=== PATIENT | female | born 1965 | race African-American/Black ===

== ENCOUNTER → 2017-10-09 | Outpatient (CLI) | payer OTHER ==
--- NOTE | 2017-10-09 16:10 | RADIOLOGY REPORT (SQ) ---
EXAM DESCRIPTION: U/S [id number] TRNABD 1GES W/ODOP COMPLETED DATE/TIME: 10/09/2017 4:01 pm REASON FOR STUDY: O36.80X0 W INCONCLUSIVE VIABILITY, UNSP O36.80X0 W INCO NCLUSIVE VIABILITY, UNSP COMPARISON: None. TECHNIQUE: Transvaginal static and realtime grayscale images acquired of the pelvis. Additional mariann cted spectral and color Doppler images recorded. All images stored on PACs. bHCG: Not available LIMITATIONS: None. FINDINGS: UTERUS: Uterine fibroid is identified measuring 4.7 x 4.3 x 4.1 cm GESTATIONAL SAC: Not visualized YOLK SAC: Not visualize POLE: Not visualized RIGHT ADNEXA: Right ovary not visualized. No adnexal free fluid. No adnexal masses. LEFT ADNEXA: Left ovary not visualized. No adnexal free fluid. No adnexal masses. FREE FLUID: None. OTHER: There is some thickening of the endometrium measuring 29 mm. IMPRESSION: No IUP is identified. There is some thickening of the endometrium. Uterine fibroid is identified as noted above. Other findings as noted above. Trimester of : First - 0 to 13 weeks. TECHNICAL DOCUMENTATION: JOB ID: [id number] [employer]- All Rights Reserved Reading location - IP/workstation name: [email or web address]
== END ==
LOC: RAD 16:53
PROVIDERS: ATTEND Student in an Organized Health Care Education/Training Program
DX: O36.80X0 Pregnancy with inconclusive fetal viability, not applicable or unspecified (principal); D25.9 Leiomyoma of uterus, unspecified
CPT/HCPCS: 76801

== ENCOUNTER → 2017-10-09 | Outpatient (CLI) | payer OTHER | LOC: OD 12:16 | PROVIDERS: ATTEND Student in an Organized Health Care Education/Training Program | DX: O36.80X0 Pregnancy with inconclusive fetal viability, not applicable or unspecified (principal); D25.9 Leiomyoma of uterus, unspecified | CPT/HCPCS: 36415; 84702 ==

== ENCOUNTER 2017-10-10 07:00 | Day surgery (SDC) | payer OTHER ==
[2017-10-10] MEDS ORDERED: BUPIVACAINE HCL 0.25 % INJ/PF (2.5 MG/1 ML) 30 ML VIAL ONE (07:49)
[2017-10-10 07:52] LABS: HEMATOCRIT 37.3 % (36.0-47.0); HEMOGLOBIN 12.4 g/dL (12.0-15.5); MEAN CORPUSCULAR HEMOGLOBIN 29.8 pg (27.0-33.4); MEAN CORPUSCULAR HGB CONC 33.1 g/dL (32.0-36.0); MEAN CORPUSCULAR VOLUME 90 fl (80-97); PLATELET COUNT 295 10^3/uL (150-450); RED BLOOD COUNT 4.15 10^6/uL (3.72-5.28); RED CELL DISTRIBUTION WIDTH 14.2 % (11.5-14.0); WHITE BLOOD COUNT 7.5 10^3/uL (4.0-10.5)
[2017-10-10 08:14] LABS: APPEARANCE,URINE CLEAR; BILIRUBIN,URINE NEGATIVE (NEGATIVE); COLOR,URINE YELLOW; GLUCOSE, URINE NEGATIVE (NEGATIVE); KETONES,URINE NEGATIVE (NEGATIVE); LEUKOCYTE ESTERASE,URINE NEGATIVE (NEGATIVE); NITRITE,URINE NEGATIVE (NEGATIVE); PROTEIN,URINE NEGATIVE (NEGATIVE); URINE SPECIFIC GRAVITY 1.023
[2017-10-10] MEDS ORDERED: MIDAZOLAM 2 MG/2 ML INJ ONE (08:58)
[2017-10-10] MEDS ORDERED: ACETAMINOPHEN 100 ML IV ONE (08:58)
[2017-10-10] MEDS ORDERED: FENTANYL CITRATE INJ/PF 100 MCG/2 ML AMPUL ONE (08:58)
[2017-10-10] MEDS ORDERED: PROPOFOL INJ 200 MG/20 ML VIAL IV ONE (08:58)
[2017-10-10] MEDS ORDERED: HYDROMORPHONE HCL INJ/PF 2 MG/ML AMPULE ONE (08:58)
[2017-10-10] MEDS ORDERED: ONDANSETRON HCL INJ/PF 4 MG/2 ML SDV IV PRN (09:47)
[2017-10-10] MEDS ORDERED: DIPHENHYDRAMINE HCL 50 MG/ML VIAL IV PRN (09:47)
[2017-10-10] MEDS ORDERED: OXYCODONE-ACETAMINOPHEN 5-325 MG TABLET PO PRN ×4 (09:47→10:30)
[2017-10-10] MEDS ORDERED: PROMETHAZINE HCL INJ 25 MG/1 ML VIAL IV PRN ×2 (09:47)
[2017-10-10] MEDS ORDERED: FENTANYL CITRATE INJ/PF 100 MCG/2 ML AMPUL IV PRN ×3 (09:47)
[2017-10-10] MEDS ORDERED: MEPERIDINE HCL/PF INJ 25 MG/1 ML DISP.SYRIN IV PRN (09:47)
[2017-10-10] MEDS ORDERED: RINGERS SOLUTION,LACTATED 1,000 ML IV PRN (10:28)
[2017-10-10] MEDS ORDERED: MORPHINE SULFATE 10 MG/ML INJ IM PRN (10:29)
[2017-10-10] MEDS ORDERED: IBUPROFEN 800 MG TABLET PO PRN (10:29)
--- NOTE | 2017-10-10 10:39 | OPERATIVE REPORT E ---
Operative Report NAME: RUSTY BYRNE : 1965 AGE: 52Y DATE OF SURGERY: 10/10/2017 ROOM: PREOPERATIVE DIAGNOSIS: Elevated hCG with no sacs being seen in the uterus. POSTOPERATIVE DIAGNOSIS: Probable missed . OPERATION: Suction dilatation and curettage and a diagnostic laparoscopy. SURGEON: Guerda NG M.D. ANESTHESIA: General. ESTIMATED BLOOD LOSS: Less than 20 mL. TISSUE REMOVED OR ALTERED: Possible products of conception. PROCEDURE: The patient was placed in the dorsal lithotomy position, prepped and draped in usual sterile fashion. A speculum was placed, cervix was visualized and grasped with a single-tooth tenaculum and sounded to a depth of 15 cm. Easily inserted a #8 catheter and large amounts of what appeared to be products of conception were removed with suction then followed by sharp curettage, followed by repeat suction. The single-tooth tenaculum was removed. Hulka tenaculum was placed and attention was turned to the abdomen where an incision was made on the left upper quadrant. A 10/12 trocar was introduced with insufflation of the abdomen. The uterus appeared to be large and it had multiple large fibroids. A second puncture was made lateral to the right and a trocar was introduced. Both tubes were identified through the fimbria and appeared to be normal with no areas of significance for a possible ectopic. The ovaries appeared to be normal. Posterior cul-de-sac there was no evidence of any overt abnormalities noted. Survey of the abdomen revealed no other overt abnormalities. The laparoscope was introduced and abdomen deflated. Trocars were each removed. The puncture on the left was closed with 0 Vicryl to close the fascia and 4-0 Vicryl to close the skin. The one on the right was closed with 4-0 Vicryl to close the skin. The Hulka tenaculum was removed. Hemostasis was noted. She tolerated the procedure well and was taken to recovery in good condition. DICTATING PHYSICIAN: Guerda NG M.D. [id number] PHY#: [id number] ID: [id number] JOB#: [id number] ACCT: [id number] cc:Guerda NG M.D. >
[2017-10-10] MEDS ORDERED: SUCCINYLCHOLINE CHLORIDE INJ 200 MG/10 ML VIAL ONE (10:53)
[2017-10-10] MEDS ORDERED: METOCLOPRAMIDE HCL INJ/PF 10 MG/2 ML SDV ONE (10:53)
[2017-10-10] MEDS ORDERED: ONDANSETRON HCL INJ/PF 4 MG/2 ML SDV ONE (10:53)
[2017-10-10] MEDS ORDERED: DEXAMETHASONE SOD PHOSPHATE INJ 4 MG/1 ML VIAL ONE (10:53)
[2017-10-10] MEDS ORDERED: LIDOCAINE 2% INJ-PF (20 MG/ML) 2 ML AMPUL ONE (10:53)
[2017-10-10] MEDS ORDERED: KETOROLAC TROMETHAMINE 60 MG/2 ML SDV ONE (10:53)
[2017-10-10] MEDS ORDERED: OXYCODONE-ACETAMINOPHEN 5-325 MG TABLET ONE (11:22)
[2017-10-10 12:43] VITALS: BP 107/64
== END 2017-10-10 12:20 | disposition home or self-care (01) ==
LOC: OROUT 07:00
PROVIDERS: ATTEND Obstetrics & Gynecology Gynecology
DX: O02.1 Missed abortion (principal); D25.9 Leiomyoma of uterus, unspecified; Z32.01 Encounter for pregnancy test, result positive
CPT/HCPCS: 36415; 85027; 81001; 88305 ×2; 49320; 59820; J2250; J1100; J1885; J2765; J1170; J0330; J2405; J2704; J0131; J3490; 840; J3010

== ENCOUNTER → 2017-12-07 | Outpatient (CLI) | payer OTHER ==
[2017-12-07 17:41] LABS: ABSOLUTE BASOPHILS # (AUTO) 0.1 10^3/uL (0.0-0.2); ABSOLUTE EOSINOPHILS # (AUTO) 0.2 10^3/uL (0.0-0.6); ABSOLUTE LYMPHOCYTES (AUTO) 1.4 10^3/uL (0.5-4.7); ABSOLUTE MONOCYTES (AUTO) 0.5 10^3/uL (0.1-1.4); ABSOLUTE NEUT (AUTO) 4.7 10^3/uL (1.7-8.2); BASOPHILS % (AUTO) 0.9 % (0-2); EOSINOPHILS % (AUTO) 2.8 % (0-6); HEMATOCRIT 37.1 % (36.0-47.0); HEMOGLOBIN 12.5 g/dL (12.0-15.5); LYMPHOCYTES % (AUTO) 20.6 % (13-45); MEAN CORPUSCULAR HEMOGLOBIN 30.4 pg (27.0-33.4); MEAN CORPUSCULAR HGB CONC 33.6 g/dL (32.0-36.0); MEAN CORPUSCULAR VOLUME 90 fl (80-97); MONOCYTES % (AUTO) 7.9 % (3-13); PLATELET COUNT 315 10^3/uL (150-450); RED BLOOD COUNT 4.12 10^6/uL (3.72-5.28); SEGMENTED NEUTROPHILS % (AUTO) 67.8 % (42-78); TOTAL CELLS COUNTED % (AUTO) 100 %; WHITE BLOOD COUNT 6.8 10^3/uL (4.0-10.5)
[2017-12-07 18:17] LABS: ALANINE AMINOTRANSFERASE 23 U/L (9-52); ALBUMIN 4.1 g/dL (3.5-5.0); ALKALINE PHOSPHATASE 60 U/L (38-126); ANION GAP 11 (5-19); ASPARTATE AMINO TRANSFERASE 25 U/L (14-36); BILIRUBIN,DIRECT 0.4 mg/dL (0.0-0.4); BILIRUBIN,TOTAL 0.5 mg/dL (0.2-1.3); BLOOD UREA NITROGEN 13 mg/dL (7-20); CALCIUM 9.4 mg/dL (8.4-10.2); CARBON DIOXIDE 28 mmol/L (22-30); CHLORIDE 103 mmol/L (98-107); GLUCOSE 85 mg/dL (75-110); POTASSIUM 4.3 mmol/L (3.6-5.0); SODIUM 141.9 mmol/L (137-145); TOTAL PROTEIN 7.1 g/dL (6.3-8.2)
== END ==
LOC: OD 17:01
PROVIDERS: ATTEND Obstetrics & Gynecology
DX: O00.90 Unspecified ectopic pregnancy without intrauterine pregnancy (principal)
CPT/HCPCS: 36415; 80053; 84702; 85025